=== PATIENT | female | born 1970 | race African-American/Black ===

== ENCOUNTER 2017-11-18 16:45 | Inpatient (IN) | payer OTHER ==
[2017-11-18 17:59] VITALS: BMI 42.9
--- NOTE | 2017-11-18 20:41 | HP ---
CIWA Score - CIWA Score Nausea/Vomitin-No Nausea/No Vomiting Muscle Tremors: 2 Anxiety: 2 Agitation: 4-Moderately Restless Paroxysmal Sweats: 3 Orientation: 1-Uncertain about Date Tacttile Disturbances: 1-Very Mild Itch/Numbness Auditory Disturbances: 0-None Visual Disturbances: 0-None Headache: 0-None Present CIWA-Ar Total Score: 13 Admission ROS S - HPI Chief Complaint: " I want to get clean and go to rehab" Allergies/Adverse Reactions: Allergies Allergy/AdvReac Type Severity Reaction Status Date / Time No Known Allergies Allergy Verified 11/18/17 20:21 History of Present Illness: 47 yo female with hx of crack/cocaine , alcohol, marijuana, and nicotine dependence is here seeking detox. Lst detox 1 year ago at [facility]. PMHX: HIV (non-compliant with meds), asthma, bipolar, depression. Reports feeling depressed lately since remembering the passing of her sister during the month of October 2 years ago. Denies suicidal / homicidal ideation or past hx of suicide attempts. Longest period of sobriety 90 days. Reference #: [id number] Others' Prescriptions Patient Name: Birdie Quiñones Date: 1970 Address: [address] [place] [address] Sex: Female Rx Written Rx Dispensed Drug Quantity Days Supply Prescriber Name 11/16/2017 11/16/2017 clonazepam 1 mg tablet 60 30 Parish Gatica (WORKCELL OPERATOR) 10/08/2017 10/08/2017 clonazepam 1 mg tablet 60 30 Parish Gatica (WORKCELL OPERATOR) 09/08/2017 09/14/2017 clonazepam 1 mg tablet 60 30 Parish Gatica (WORKCELL OPERATOR) 08/07/2017 08/10/2017 clonazepam 1 mg tablet 60 30 Parish Gatica (WORKCELL OPERATOR) 07/13/2017 07/13/2017 clonazepam 1 mg tablet 60 30 Parish Gatica (WORKCELL OPERATOR) 06/06/2017 06/08/2017 tramadol hcl 50 mg tablet 20 4 Candy Villalta 06/08/2017 06/08/2017 clonazepam 1 mg tablet 60 30 Parish Gatica (WORKCELL OPERATOR) 05/05/2017 05/05/2017 clonazepam 1 mg tablet 60 30 Parish Gatica (WORKCELL OPERATOR) 04/06/2017 04/06/2017 clonazepam 1 mg tablet 60 30 Depaola, Parish (WORKCELL OPERATOR) 03/06/2017 03/06/2017 clonazepam 1 mg tablet 60 30 Parish Gatica (WORKCELL OPERATOR) 02/05/2017 02/05/2017 clonazepam 1 mg tablet 60 30 aPrish Gatica (WORKCELL OPERATOR) 01/06/2017 01/06/2017 clonazepam 1 mg tablet 60 30 Parish Gatica (WORKCELL OPERATOR) 12/10/2016 12/10/2016 clonazepam 1 mg tablet 30 30 Parish Gatica (WORKCELL OPERATOR) Exam Limitations: No Limitations - Ebola screening Have you traveled outside of the country in the last 21 days: No Have you had contact with anyone from an Ebola affected area: No Have you been sick,other than usual withdrawal symptoms: No Do you have a fever: No - Review of Systems Constitutional: Chills, Diaphoresis EENT: reports: Nose Congestion, Dental Problems (mising teeth) Respiratory: reports: Cough (x 2 days), Wheezing Cardiac: reports: No Symptoms Reported GI: reports: Abdominal cramping : reports: No Symptoms Reported Musculoskeletal: reports: Back Pain, Joint Pain (both knees, OA) Integumentary: reports: No Symptoms Reported Neuro: reports: No Symptoms reported Endocrine: reports: Increased Thirst, Unexplained Weight Gain Hematology: reports: No Symptoms Reported Psychiatric: reports: Orientated x3, Depressed Other Systems: Reviewed and Negative Patient History - Patient Medical History Hx Anemia: No Hx Asthma: Yes Hx Chronic Obstructive Pulmonary Disease (COPD): No Hx Cancer: No Hx Cardiac Disorders: No Hx Congestive Heart Failure: No Hx Hypertension: No Hx Hypercholesterolemia: No Hx Pacemaker: No HX Cerebrovascular Accident: No Hx Seizures: No Hx Dementia: No Hx Diabetes: No Hx Gastrointestinal Disorders: No Hx Liver Disease: Yes (Hep B ) Hx Genitourinary Disorders: No Hx Sexually Transmitted Disorders: No Hx Renal Disease (ESRD): No Hx Thyroid Disease: No Hx Human Immunodeficiency Virus (HIV): Yes (in 1995, prezcobix, TRUVADA) Hx Hepatitis C: No Hx Depression: Yes Hx Suicide Attempt: No Hx Bipolar Disorder: Yes (schizoaffective disorder) Hx Schizophrenia: Yes (in tx) - Patient Surgical History Past Surgical History: Yes Hx Neurologic Surgery: No Hx Cataract Extraction: No Hx Cardiac Surgery: No Hx Lung Surgery: No Hx Breast Surgery: No Hx Breast Biopsy: No Hx Abdominal Surgery: Yes (TEMPORARY COLOSTOMY PERFORATED COLON AT AGE 20 YRS) Hx Appendectomy: No Hx Cholecystectomy: No Hx Genitourinary Surgery: No Hx Section: No Hx Orthopedic Surgery: No Anesthesia Reaction: No - PPD History Previous Implant?: Yes Documented Results: Negative w/proof Date: 09/15/12 Results: 0 mm PPD to be Administered?: Yes - Reproductive History Patient is a Female of Child Bearing Age (11 -55 yrs old): Yes (Postmenopausal ) Last Menstrual Period: 07/30/13 (no menses) - Smoking Cessation Smoking history: Current every day smoker Have you smoked in the past 12 months: Yes Aproximately how many cigarettes per day: 5 Hx Chewing Tobacco Use: No Initiated information on smoking cessation: Yes 'Breaking Loose' booklet given: 11/18/17 - Substance & Tx. History Hx Alcohol Use: Yes Hx Substance Use: Yes Substance Use Type: Alcohol, Cocaine, Marijuana - Substances Abused Crack Route: Smoking Frequency: 3-6 times per week Amount used: $100 Age of first use: 20 Date of Last Use: 11/17/17 Alcohol Route: Oral Frequency: Daily Amount used: LIQUOR- 3 PINTS, Age of first use: 18 Date of Last Use: 11/18/17 Cocaine Route: Smoking Frequency: Daily Amount used: $50 WORTH Age of first use: 20 Date of Last Use: 11/17/17 Family Disease History - Family Disease History Family Disease History: Diabetes: Brother (alive ), Other: Father (, homocide ), Mother (, drug overdose ), Sister (, leukemia ) Admission Physical Exam S - Vital Signs Vital Signs: Vital Signs - 24 hr 11/18/17 17:57 Temperature 97.6 F Pulse Rate 100 H Respiratory 18 Rate Blood Pressure 148/100 - Physical General Appearance: Yes: Disheveled, Obese, Sweating, Anxious HEENTM: Yes: EOMI, Hearing grossly Normal, Normal ENT Inspection, Normocephalic , Normal Voice, Pharynx Normal, Tm's normal, Rhinorrhea Respiratory: Yes: Chest Non-Tender, Lungs Clear, No Respiratory Distress, No Accessory Muscle Use, Wheezing Neck: Yes: Within Normal Limits Breast: Yes: Breast Exam Deferred Cardiology: Yes: Regular Rhythm, Regular Rate Abdominal: Yes: Normal Bowel Sounds, Non Tender, Soft, Protuberent Genitourinary: Yes: Within Normal Limits Back: Yes: Normal Inspection Musculoskeletal: Yes: full range of Motion, Gait Steady, Pelvis Stable, Back pain Extremities: Yes: Normal Capillary Refill, Normal Inspection, Normal Range of Motion, Non-Tender Neurological: Yes: station examiner II-XII NML intact, Fully Oriented, Alert, Motor Strength 5/5, Normal Response, Depressed Affect Integumentary: Yes: Normal Color, Warm, Moist, Rash (face) Lymphatic: Yes: Within Normal Limits - Diagnostic (1) Alcohol dependence with withdrawal Current Visit: Yes Status: Acute (2) Obese Current Visit: Yes Status: Chronic Qualifiers: Obesity classification: adult class 3 (BMI >= 40) Body mass index: BMI 40.0 -44.9 (3) Asthma Current Visit: Yes Status: Chronic (4) Cocaine dependence Current Visit: Yes Status: Active (5) Facial rash Current Visit: Yes Status: Acute (6) HIV (human immunodeficiency virus infection) Current Visit: Yes Status: Chronic Cleared for Admission [facility] - Detox or Rehab [facility] Level of Care: Medically Managed Detox Regimen/Protocol: Librium [facility] Breath Alcohol Content Breath Alcohol Content: 0 Urine Pregancy Test - Result Urine Test Results: Negative- NO Line Present Urine Drug Screen - Results Drug Screen Negative: Yes Urine Drug Screen Results: THC-Marijuana, ARLENE-Cocaine
[2017-11-18] MEDS ORDERED: NICOTINE POLACRILEX 2 MG GUM BC PRN (20:49)
[2017-11-18] MEDS ORDERED: hydrOXYzine PAMOATE 50 MG CAPSULE (FP) PO PRN (20:49)
[2017-11-18] MEDS ORDERED: MAG HYDROX/AL HYDROX/SIMETH 30 ML UNIT-DOSE CUP PO PRN (20:49)
[2017-11-18] MEDS ORDERED: guaiFENesin/D-METHORPHAN HB 10 ML UNIT-DOSE CUPS PO PRN (20:49)
[2017-11-18] MEDS ORDERED: MAGNESIUM CITRATE 300 ML BOTTLE PO PRN (20:49)
[2017-11-18] MEDS ORDERED: MENTHOL/PHENOL 1 EACH UD MM PRN (20:49)
[2017-11-18] MEDS ORDERED: LOPERAMIDE HCL 2 MG CAPSULE PO PRN (20:49)
[2017-11-18] MEDS ORDERED: ACETAMINOPHEN 325 MG TABLET (FP) PO PRN (20:49)
[2017-11-18] MEDS ORDERED: IBUPROFEN 400 MG TABLET (FP) PO PRN (20:49)
[2017-11-18] MEDS ORDERED: MAGNESIUM HYDROX 2400MG/30ML ORAL SUSPENSION 30 ML CUP PO PRN (20:49)
[2017-11-18] MEDS ORDERED: P-EPHED 60MG/TRIPROLIDI 2.5MG TABLET PO PRN (20:49)
[2017-11-18] MEDS ORDERED: chlordiazePOXIDE HCL 25 MG CAPSULE PO PRN (20:49)
[2017-11-18] MEDS ORDERED: ALBUTEROL SO4 18 GM HFA INHALER IH PRN (21:00)
[2017-11-18] MEDS ORDERED: chlordiazePOXIDE HCL 25 MG CAPSULE PO ONE (21:00)
[2017-11-18] MEDS: THIAMINE HCL 100 MG TABLET (FP) PO SCH (21:29)
[2017-11-18] MEDS ORDERED: MELATONIN 5 MG TABLETS PO PRN (22:00)
[2017-11-18] MEDS: chlordiazePOXIDE HCL 25 MG CAPSULE PO SCH (23:27)
[2017-11-18 23:34] LABS: URINE APPEARANCE TURBID; URINE BILIRUBIN NEGATIVE (<2.0 mg/dL); URINE COLOR YELLOW; URINE GLUCOSE (UA) NEGATIVE (NEGATIVE); URINE KETONE NEGATIVE (NEGATIVE); URINE LEUK ESTERASE NEGATIVE (NEGATIVE); URINE NITRITE NEGATIVE (NEGATIVE)
[2017-11-18 23:40] LABS: URINE PROTEIN 1+ (NEGATIVE)
[2017-11-18 23:53] LABS: EPI CELLS RARE /HPF (FEW); URINE BACTERIA RARE /hpf (NONE SEEN); URINE MUCUS RARE
[2017-11-19] MEDS: chlordiazePOXIDE HCL 25 MG CAPSULE PO SCH ×4 (06:41→22:22)
--- NOTE | 2017-11-19 09:42 | CONSULT ---
[facility] Psychiatric Consult - Data Date of interview: 11/19/17 Admission source: [facility] Identifying data: This is 47 years old male, maried, living alone, on SSI, with psychiaric hsopitalization history, with history if Cocaine, Alcohol, Cannabis, .Nicotine dependence, rpeorts withdrawal symptoms and seeking for detox. l. PMHX: HIV (non-compliant with meds), asthma, bipolar, depression. Reports feeling depressed lately since remembering the passing of her sister during the month of October 2 years ago. Denies suicidal / homicidal ideation or past hx of suicide attempts. Longest period of sobriety 90 days. Substance Abuse History: - Smoking Cessation. Smoking history: Current every day smoker. Have you smoked in the past 12 months: Yes. Aproximately how many cigarettes per day: 5. Hx Chewing Tobacco Use: No. Initiated information on smoking cessation: Yes. 'Breaking Loose' booklet given: 11/18/17. - Substance & Tx. History. Hx Alcohol Use: Yes. Hx Substance Use: Yes. Substance Use Type : Alcohol, Cocaine, Marijuana. - Substances Abused. Crack. Route: Smoking. Frequency: 3-6 times per week. Amount used: $100. Age of first use: 20. Date of Last Use: 11/17/17. Alcohol. Route: Oral. Frequency: Daily. Amount used: LIQUOR- 3 PINTS,. Age of first use: 18. Date of Last Use: . Cocaine. Route: Smoking. Frequency: Daily. Amount used: $50 WORTH. Age of first use: 20. Date of Last Use: 11/17/17 Medical History: HIV (non-compliant with meds), asthma, HTN, BPH, Weight gain. Reports feeling depressed lately since remembering the passing of her sister during the month of October 2 years ago. Denies suicidal / homicidal ideation or past hx of suicide attempts. Psychiatric History: Patient reports history of Schizophrenia, reports taking prior to admission: Risperdal 1mg po qhs, reports most recent psychiatric admission on about qo years ago. Physical/Sexual Abuse/Trauma History: Denies Additional Comment: Risperdal 1mg po qhs Mental Status Exam - Mental Status Exam Alert and Oriented to: Person Cognitive Function: Fair Patient Appearance: Unkempt Mood: Anxious Patient Behavior: Appropriate Speech Pattern: Delayed Voice Loudness: Normal Thought Process: Goal Oriented Thought Disorder: Being Controlled Hallucinations: Denies Suicidal Ideation: Denies Homicidal Ideation: Denies Insight/Judgement: Fair Sleep: Difficulty falling asleep Appetite: Weight gain Muscle strength/Tone: Mild Hypotonicity Gait/Station: Normal Additional Comments: Risperdal 1mg po qhs Psychiatric Findings - Problem List ([place] 1, 2,3) (1) Cocaine dependence Current Visit: Yes Status: Active (2) Alcohol dependence with withdrawal Current Visit: Yes Status: Acute (3) Acquired immune deficiency syndrome (AIDS) Current Visit: Yes Status: Chronic (4) Asthma Current Visit: Yes Status: Chronic (5) HIV (human immunodeficiency virus infection) Current Visit: Yes Status: Chronic (6) Obese Current Visit: Yes Status: Chronic Qualifiers: Obesity classification: adult class 3 (BMI >= 40) Body mass index: BMI 40.0 -44.9 (7) Alcohol dependence Current Visit: No Status: Active (8) Cannabis dependence Current Visit: No Status: Active (9) Paranoid schizophrenia Current Visit: No Status: Active - Initial Treatment Plan Initial Treatment Plan: Risperdal 1mg po qhs
[2017-11-19 09:52] LABS: HEMATOCRIT 37.5 % (32.4-45.2); HEMOGLOBIN 12.3 GM/dL (10.7-15.3); MCH 29.9 pg (25.7-33.7); MCHC 32.8 g/dl (32.0-36.0); MEAN CELL VOLUME 91.3 fl (80-96); PLATELET COUNT 162 K/MM3 (134-434); RDW 14.1 % (11.6-15.6); WHITE BLOOD COUNT 6.1 K/mm3 (4.0-10.0)
[2017-11-19] MEDS ORDERED: COLLOIDAL OATMEAL 1 BAR EACH TP PRN (10:28)
[2017-11-19 10:43] LABS: ALBUMIN 3.2 g/dl (3.4-5.0); ANION GAP 8 (8-16); BLOOD UREA NITROGEN 13 mg/dL (7-18); CALCIUM 8.5 mg/dL (8.5-10.1); CHLORIDE 103 mmol/L (98-107); CO2 30 mmol/L (21-32); CREATININE 0.8 mg/dL (0.55-1.02); GLUCOSE,RANDOM 88 mg/dL (74-106); POTASSIUM 3.7 mmol/L (3.5-5.1); SGOT/AST 27 U/L (15-37); SGPT/ALT 22 U/L (12-78); SODIUM 141 mmol/L (136-145)
[2017-11-19] MEDS: PRENATAL VITAMINS W/ FOLIC ACID TABLET (FP) PO SCH (10:47)
[2017-11-19] MEDS: NICOTINE 14 MG/24 HOURS TOPICAL PATCH TD SCH (10:48)
[2017-11-19 11:00] LABS: ALK PHOS 73 U/L (45-117); BILIRUBIN,TOTAL 0.5 mg/dL (0.2-1.0); TOT PROT 7.8 g/dl (6.4-8.2)
--- NOTE | 2017-11-19 11:08 | PN ---
S CIWA - CIWA Score Nausea/Vomitin-No Nausea/No Vomiting Muscle Tremors: None Anxiety: 0-No Anxiety, at Ease Agitation: 0-Normal Activity Paroxysmal Sweats: No Perspiration Orientation: 0-Oriented Tacttile Disturbances: 2-Mild Itch/Numbness/Burn Auditory Disturbances: 0-None Visual Disturbances: 0-None Headache: 0-None Present CIWA-Ar Total Score: 2 BHS Progress Note (SOAP) Subjective: PATIENT ADMITTED ON 11/18/17 FOR ETOH WITHDRAWAL SYMPTOMS. STATES "I FEEL OK. JUST A LITTLE ITCHING OF SKIN". Objective: 11/19/17 11:05 GENERAL: ALERT AND ORIENTED X 3. IN NAD. SKIN: WARM AND DRY. NO OPEN AREAS GI: SOFT, BS+, NT EXT: NO EDEMA, FULL ROM Assessment: 11/19/17 11:07 ETOH WITHDRAWAL SYMPTOMS WITHDRAWAL SYMPTOMS DRY SKIN/PRURITIS Plan: CONTINUE DETOX ORAL FLUIDS ENCOURAGED AVEENO SOAP ORDERED CONTINUE TO MONITOR CLINICALLY
[2017-11-19] MEDS: HYDROCORTISONE 1% TOPICAL LOTION 118 ML BOTTLE TP PRN (11:15)
--- NOTE | 2017-11-19 11:59 | EKG ---
Test Reason : Blood Pressure : / mmHG Vent. Rate : 084 BPM Atrial Rate : 084 BPM P-R Int : 154 ms QRS Dur : 074 ms QT Int : 352 ms P-R-T Axes : 038 071 050 degrees QTc Int : 415 ms NORMAL SINUS RHYTHM WITH SINUS ARRHYTHMIA NORMAL ECG NO PREVIOUS ECGS AVAILABLE Confirmed by MARIO ESPINAL MD ([id number]) on 11/19/2017 11:59:15 AM Referred By: Confirmed By:MARIO ESPINAL MD
[2017-11-19] MEDS: THIAMINE HCL 100 MG TABLET (FP) PO SCH (22:22)
[2017-11-19] MEDS: risperiDONE 1 MG TABLET (FP) PO SCH (22:22)
[2017-11-20] MEDS: chlordiazePOXIDE HCL 25 MG CAPSULE PO SCH ×3 (06:31→18:41)
[2017-11-20] MEDS: PRENATAL VITAMINS W/ FOLIC ACID TABLET (FP) PO SCH (10:18)
[2017-11-20] MEDS: NICOTINE 14 MG/24 HOURS TOPICAL PATCH TD SCH (10:19)
[2017-11-20] MEDS: HYDROCORTISONE 1% TOPICAL LOTION 118 ML BOTTLE TP PRN (10:21)
--- NOTE | 2017-11-20 11:25 | PN ---
[facility] CIWA - CIWA Score Nausea/Vomitin-No Nausea/No Vomiting Muscle Tremors: 4-Moderate,w/Arms Extend Anxiety: 4-Mod. Anxious/Guarded Agitation: 4-Moderately Restless Paroxysmal Sweats: 1-Minimal Palms Moist Orientation: 0-Oriented Tacttile Disturbances: 0-None Auditory Disturbances: 0-None Visual Disturbances: 0-None Headache: 0-None Present CIWA-Ar Total Score: 13 S Progress Note (SOAP) Subjective: SLIGHT ANXIETY,SWEATS, REPORTS DETOX PROCEEDING WELL. INTERESTED TO GO TO REHAB. Objective: 11/20/17 11:31 Vital Signs 11/20/17 11/20/17 06:00 10:00 Temperature 98.1 F 98.2 F Pulse Rate 79 112 H Respiratory 18 18 Rate Blood Pressure 128/76 125/84 Laboratory Tests 11/18/17 11/19/17 11/19/17 23:15 07:00 07:00 WBC 6.1 D RBC 4.10 Hgb 12.3 Hct 37.5 MCV 91.3 MCH 29.9 MCHC 32.8 RDW 14.1 Plt Count 162 MPV 9.0 Sodium 141 Potassium 3.7 Chloride 103 Carbon Dioxide 30 Anion Gap 8 BUN 13 Creatinine 0.8 Creat Clearance w eGFR > 60 Random Glucose 88 Calcium 8.5 Total Bilirubin 0.5 D AST 27 ALT 22 Alkaline Phosphatase 73 Total Protein 7.8 Albumin 3.2 L Urine Color Yellow Urine Appearance Turbid Urine pH 5.0 Ur Specific [place] 1.032 Urine Protein 1+ H Urine Glucose (UA) Negative Urine Ketones Negative Urine Blood 1+ H Urine Nitrite Negative Urine Bilirubin Negative Urine Urobilinogen 2.0 H Ur Leukocyte Esterase Negative Urine WBC (Auto) 42 Urine RBC (Auto) 25 Ur Epithelial Cells Rare Urine Bacteria Rare Urine Mucus Rare RPR Titer 11/19/17 07:00 WBC RBC Hgb Hct MCV MCH MCHC RDW Plt Count MPV Sodium Potassium Chloride Carbon Dioxide Anion Gap BUN Creatinine Creat Clearance w eGFR Random Glucose Calcium Total Bilirubin AST ALT Alkaline Phosphatase Total Protein Albumin Urine Color Urine Appearance Urine pH Ur Specific [place] Urine Protein Urine Glucose (UA) Urine Ketones Urine Blood Urine Nitrite Urine Bilirubin Urine Urobilinogen Ur Leukocyte Esterase Urine WBC (Auto) Urine RBC (Auto) Ur Epithelial Cells Urine Bacteria Urine Mucus RPR Titer Nonreactive LABS NOTED Assessment: 06/22/18 11:31 WITHDRAWAL SX Plan: CONTINUE DETOX INCREASE PO FLUIDS REPEAT UA
[2017-11-20] MEDS: BACITRACIN 0.9 GM PACKET TP SCH (15:43)
[2017-11-20 16:56] LABS: URINE APPEARANCE SLCLOUDY; URINE BILIRUBIN NEGATIVE (<2.0 mg/dL); URINE COLOR YELLOW; URINE GLUCOSE (UA) NEGATIVE (NEGATIVE); URINE KETONE NEGATIVE (NEGATIVE); URINE LEUK ESTERASE NEGATIVE (NEGATIVE); URINE NITRITE NEGATIVE (NEGATIVE); URINE PROTEIN NEGATIVE (NEGATIVE); URINE UROBILINOGEN NEGATIVE mg/dL (0.2-1.0)
[2017-11-20] MEDS: chlordiazePOXIDE 5 MG CAPSULE PO SCH (22:29)
[2017-11-20] MEDS: THIAMINE HCL 100 MG TABLET (FP) PO SCH (22:29)
[2017-11-20] MEDS: risperiDONE 1 MG TABLET (FP) PO SCH (22:32)
[2017-11-21] MEDS: chlordiazePOXIDE 5 MG CAPSULE PO SCH ×3 (06:11→18:24)
[2017-11-21] MEDS: BACITRACIN 0.9 GM PACKET TP SCH (10:18)
[2017-11-21] MEDS: PRENATAL VITAMINS W/ FOLIC ACID TABLET (FP) PO SCH (10:18)
[2017-11-21] MEDS: HYDROCORTISONE 1% TOPICAL LOTION 118 ML BOTTLE TP PRN (10:19)
[2017-11-21] MEDS: NICOTINE 14 MG/24 HOURS TOPICAL PATCH TD SCH (10:19)
--- NOTE | 2017-11-21 12:58 | PN ---
S Progress Note (SOAP) Subjective: Tremors, sweats and irritability Objective: 11/21/17 12:56 Vital Signs 11/21/17 11/21/17 06:51 10:45 Temperature 97.7 F 97.5 F L Pulse Rate 89 82 Respiratory 20 18 Rate Blood Pressure 133/74 132/98 Laboratory Last Values WBC 6.1 K/mm3 (4.0-10.0) D 11/19/17 07:00 RBC 4.10 M/mm3 (3.60-5.2) 11/19/17 07:00 Hgb 12.3 GM/dL (10.7-15.3) 11/19/17 07:00 Hct 37.5 % (32.4-45.2) 11/19/17 07:00 MCV 91.3 fl (80-96) 11/19/17 07:00 MCH 29.9 pg (25.7-33.7) 11/19/17 07:00 MCHC 32.8 g/dl (32.0-36.0) 11/19/17 07:00 RDW 14.1 % (11.6-15.6) 11/19/17 07:00 Plt Count 162 K/MM3 (134-434) 11/19/17 07:00 MPV 9.0 fl (7.5-11.1) 11/19/17 07:00 Sodium 141 mmol/L (136-145) 11/19/17 07:00 Potassium 3.7 mmol/L (3.5-5.1) 11/19/17 07:00 Chloride 103 mmol/L (98-107) 11/19/17 07:00 Carbon Dioxide 30 mmol/L (21-32) 11/19/17 07:00 Anion Gap 8 (8-16) 11/19/17 07:00 BUN 13 mg/dL (7-18) 11/19/17 07:00 Creatinine 0.8 mg/dL (0.55-1.02) 11/19/17 07:00 Creat Clearance w eGFR > 60 (>60) 11/19/17 07:00 Random Glucose 88 mg/dL (74-106) 11/19/17 07:00 Calcium 8.5 mg/dL (8.5-10.1) 11/19/17 07:00 Total Bilirubin 0.5 mg/dL (0.2-1.0) D 11/19/17 07:00 AST 27 U/L (15-37) 11/19/17 07:00 ALT 22 U/L (12-78) 11/19/17 07:00 Alkaline Phosphatase 73 U/L (45-117) 11/19/17 07:00 Total Protein 7.8 g/dl (6.4-8.2) 11/19/17 07:00 Albumin 3.2 g/dl (3.4-5.0) L 11/19/17 07:00 Urine Color Yellow 11/20/17 13:19 Urine Appearance Slcloudy 11/20/17 13:19 Urine pH 5.0 (5.0-8.0) 11/20/17 13:19 Ur Specific [place] 1.014 (1.001-1.035) 11/20/17 13:19 Urine Protein Negative (NEGATIVE) 11/20/17 13:19 Urine Glucose (UA) Negative (NEGATIVE) 11/20/17 13:19 Urine Ketones Negative (NEGATIVE) 11/20/17 13:19 Urine Blood Negative (NEGATIVE) 11/20/17 13:19 Urine Nitrite Negative (NEGATIVE) 11/20/17 13:19 Urine Bilirubin Negative (<2.0 mg/dL) 11/20/17 13:19 Urine Urobilinogen Negative mg/dL (0.2-1.0) 11/20/17 13:19 Ur Leukocyte Esterase Negative (NEGATIVE) 11/20/17 13:19 Urine WBC (Auto) 42 /hpf (3-5) 11/18/17 23:15 Urine RBC (Auto) 25 /hpf (0-3) 11/18/17 23:15 Ur Epithelial Cells Rare /HPF (FEW) 11/18/17 23:15 Urine Bacteria Rare /hpf (NONE SEEN) 11/18/17 23:15 Urine Mucus Rare 11/18/17 23:15 RPR Titer Nonreactive (NONREACTIVE) 11/19/17 07:00 Labs noted Assessment: Withdrawal sx 11/21/17 12:57 Plan: Continue detox
[2017-11-21] MEDS: THIAMINE HCL 100 MG TABLET (FP) PO SCH (22:43)
[2017-11-21] MEDS: risperiDONE 1 MG TABLET (FP) PO SCH (22:44)
[2017-11-21] MEDS: chlordiazePOXIDE HCL 10 MG CAPSULE PO SCH (22:44)
[2017-11-22] MEDS: chlordiazePOXIDE HCL 10 MG CAPSULE PO SCH ×2 (06:34→10:25)
[2017-11-22 07:17] VITALS: BP 125/88
--- NOTE | 2017-11-22 08:47 | DS ---
[facility] Detox Discharge Summary Admission Date: 11/18/17 Discharge Date: 11/22/17 - History Present History: Alcohol Dependence Additional Comments: 47 years old female admitted 11/18/17 for alcohol withdrawal sx completed alcohol detox regimen tolerated well denies alcohol withdrawal sx today feeling better aftercare [facility] teaching on hiv art adherence and follow up with infectious disease specialist patient acknowledged the risks of none adherence art and its consequences - Physical Exam Results Vital Signs: Vital Signs Temperature 97.7 F 11/22/17 07:16 Pulse Rate 90 11/22/17 07:16 Respiratory Rate 11/22/17 07:16 Blood Pressure 125/88 11/22/17 07:16 O2 Sat by Pulse Oximetry (%) Pertinent Admission Physical Exam Findings: alcohol withdrawal sx Vital Signs Temperature 97.7 F 11/22/17 07:16 Pulse Rate 90 11/22/17 07:16 Respiratory Rate 11/22/17 07:16 Blood Pressure 125/88 11/22/17 07:16 O2 Sat by Pulse Oximetry (%) Laboratory Last Values WBC 6.1 K/mm3 (4.0-10.0) D 11/19/17 07:00 RBC 4.10 M/mm3 (3.60-5.2) 11/19/17 07:00 Hgb 12.3 GM/dL (10.7-15.3) 11/19/17 07:00 Hct 37.5 % (32.4-45.2) 11/19/17 07:00 MCV 91.3 fl (80-96) 11/19/17 07:00 MCH 29.9 pg (25.7-33.7) 11/19/17 07:00 MCHC 32.8 g/dl (32.0-36.0) 11/19/17 07:00 RDW 14.1 % (11.6-15.6) 11/19/17 07:00 Plt Count 162 K/MM3 (134-434) 11/19/17 07:00 MPV 9.0 fl (7.5-11.1) 11/19/17 07:00 Sodium 141 mmol/L (136-145) 11/19/17 07:00 Potassium 3.7 mmol/L (3.5-5.1) 11/19/17 07:00 Chloride 103 mmol/L (98-107) 11/19/17 07:00 Carbon Dioxide 30 mmol/L (21-32) 11/19/17 07:00 Anion Gap 8 (8-16) 11/19/17 07:00 BUN 13 mg/dL (7-18) 11/19/17 07:00 Creatinine 0.8 mg/dL (0.55-1.02) 11/19/17 07:00 Creat Clearance w eGFR > 60 (>60) 11/19/17 07:00 Random Glucose 88 mg/dL (74-106) 11/19/17 07:00 Calcium 8.5 mg/dL (8.5-10.1) 11/19/17 07:00 Total Bilirubin 0.5 mg/dL (0.2-1.0) D 11/19/17 07:00 AST 27 U/L (15-37) 11/19/17 07:00 ALT 22 U/L (12-78) 11/19/17 07:00 Alkaline Phosphatase 73 U/L (45-117) 11/19/17 07:00 Total Protein 7.8 g/dl (6.4-8.2) 11/19/17 07:00 Albumin 3.2 g/dl (3.4-5.0) L 11/19/17 07:00 Urine Color Yellow 11/20/17 13:19 Urine Appearance Slcloudy 11/20/17 13:19 Urine pH 5.0 (5.0-8.0) 11/20/17 13:19 Ur Specific [place] 1.014 (1.001-1.035) 11/20/17 13:19 Urine Protein Negative (NEGATIVE) 11/20/17 13:19 Urine Glucose (UA) Negative (NEGATIVE) 11/20/17 13:19 Urine Ketones Negative (NEGATIVE) 11/20/17 13:19 Urine Blood Negative (NEGATIVE) 11/20/17 13:19 Urine Nitrite Negative (NEGATIVE) 11/20/17 13:19 Urine Bilirubin Negative (<2.0 mg/dL) 11/20/17 13:19 Urine Urobilinogen Negative mg/dL (0.2-1.0) 11/20/17 13:19 Ur Leukocyte Esterase Negative (NEGATIVE) 11/20/17 13:19 Urine WBC (Auto) 42 /hpf (3-5) 11/18/17 23:15 Urine RBC (Auto) 25 /hpf (0-3) 11/18/17 23:15 Ur Epithelial Cells Rare /HPF (FEW) 11/18/17 23:15 Urine Bacteria Rare /hpf (NONE SEEN) 11/18/17 23:15 Urine Mucus Rare 11/18/17 23:15 RPR Titer Nonreactive (NONREACTIVE) 11/19/17 07:00 lab noted - Treatment Hospital Course: Detox Protocol Followed, Detoxed Safely, Responded well, Discharged Condition Good, Rehab Referral Accepted Patient has Accepted a Rehab Referral to: [facility] - Medication Discharge Medications: Ambulatory Orders Emtricitabine/Tenofovir [Truvada -] 1 tab PO DAILY 11/18/17 Risperidone [Risperdal -] 1 mg PO HS 11/18/17 Risperidone [Risperdal -] 1 mg PO HS #30 tablet 11/19/17 Albuterol Sulfate Inhaler - [Ventolin HFA Inhaler -] 2 inh PO Q6H #1 inhaler - Diagnosis (1) Alcohol dependence with withdrawal Current Visit: Yes Status: Acute Qualifiers: Complication of substance-induced condition: uncomplicated Qualified Code(s ): F10.230 - Alcohol dependence with withdrawal, uncomplicated (2) Asthma Current Visit: Yes Status: Chronic (3) HIV (human immunodeficiency virus infection) Current Visit: Yes Status: Chronic (4) Paranoid schizophrenia Current Visit: Yes Status: Suspected - AMA Did Patient Leave Against Medical Advice: No
[2017-11-22] MEDS: NICOTINE 14 MG/24 HOURS TOPICAL PATCH TD SCH (10:24)
[2017-11-22] MEDS: PRENATAL VITAMINS W/ FOLIC ACID TABLET (FP) PO SCH (10:24)
[2017-11-22] MEDS: BACITRACIN 0.9 GM PACKET TP SCH (10:24)
[2017-11-22] MEDS: HYDROCORTISONE 1% TOPICAL LOTION 118 ML BOTTLE TP PRN (10:25)
[2017-11-22 10:26] VITALS: PULSE 107; TEMP 98.1
== END 2017-11-22 10:40 | disposition other institution (70) | DRG 774 ==
LOC: YASAS 16:45 → Y6N 20:27
PROVIDERS: ADMIT Family Medicine Addiction Medicine; ATTEND Family Medicine Addiction Medicine
PROC: HZ2ZZZZ Detoxification Services for Substance Abuse Treatment (ICD-10-PCS; principal; 2017-11-18)
DX: F10.230 Alcohol dependence with withdrawal, uncomplicated (principal); F14.20 Cocaine dependence, uncomplicated; F12.20 Cannabis dependence, uncomplicated; F17.210 Nicotine dependence, cigarettes, uncomplicated; F20.0 Paranoid schizophrenia; J45.909 Unspecified asthma, uncomplicated; L98.8 Other specified disorders of the skin and subcutaneous tissue; R21 Rash and other nonspecific skin eruption; E66.9 Obesity, unspecified; Z68.41 Body mass index [BMI] 40.0-44.9, adult; Z91.14 Patient's other noncompliance with medication regimen
CPT/HCPCS: 36415; 80053; 81003; 81015; 85027; 86593; 93005; 93010; J2794

== ENCOUNTER 2017-11-22 10:45 | Inpatient (IN) | payer OTHER ==
--- NOTE | 2017-11-22 12:37 | HP ---
[facility] Rehab Assess/Revision - Admission History Admitted to Rehab from: [facility] Date of Admission to Rehab: 11/22/17 - Vital signs Vital Signs: Vital Signs Period Temp Pulse Resp BP Sys/Candelario Pulse Ox Last 24 Hr 98.2 F 96 20 125/86 - Findings Detox History & Physical reviewed: Yes Concur with findings: Yes Comments/Additional Findings: TRANSFERRED FROM DETOX TO REHAB ADMISSION PER PROTOCOL Inpatient Rehab Admission - Rehab Admission Criteria Previous failed treatment: Yes Poor recovery environment: Yes Comorbidities: Yes Lacks judgement: No Patient is meeting Inpatient Rehab admission criteria:: Yes
[2017-11-22] MEDS ORDERED: MAGNESIUM CITRATE 300 ML BOTTLE PO PRN (12:38)
[2017-11-22] MEDS ORDERED: MAG HYDROX/AL HYDROX/SIMETH 30 ML UNIT-DOSE CUP PO PRN (12:38)
[2017-11-22] MEDS ORDERED: MENTHOL/PHENOL 1 EACH UD MM PRN (12:38)
[2017-11-22] MEDS ORDERED: LOPERAMIDE HCL 2 MG CAPSULE PO PRN (12:38)
[2017-11-22] MEDS ORDERED: P-EPHED 60MG/TRIPROLIDI 2.5MG TABLET PO PRN (12:38)
[2017-11-22] MEDS ORDERED: MAGNESIUM HYDROX 2400MG/30ML ORAL SUSPENSION 30 ML CUP PO PRN (12:38)
[2017-11-22] MEDS ORDERED: NICOTINE 14 MG/24 HOURS TOPICAL PATCH TD PRN (12:38)
[2017-11-22] MEDS ORDERED: guaiFENesin/D-METHORPHAN HB 10 ML UNIT-DOSE CUPS PO PRN (12:38)
[2017-11-22] MEDS ORDERED: ACETAMINOPHEN 325 MG TABLET (FP) PO PRN (12:38)
[2017-11-22] MEDS ORDERED: BACITRACIN 0.9 GM PACKET TP ONE (12:44)
--- NOTE | 2017-11-22 15:38 | PN ---
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
[2017-11-22] MEDS: THIAMINE HCL 100 MG TABLET (FP) PO SCH (21:46)
[2017-11-22] MEDS: risperiDONE 1 MG TABLET (FP) PO SCH (21:46)
[2017-11-22] MEDS ORDERED: MELATONIN 5 MG TABLETS PO PRN (22:00)
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
[2017-11-23] MEDS: PRENATAL VITAMINS W/ FOLIC ACID TABLET (FP) PO SCH (10:02)
[2017-11-23] MEDS: THIAMINE HCL 100 MG TABLET (FP) PO SCH (21:18)
[2017-11-23] MEDS: risperiDONE 1 MG TABLET (FP) PO SCH (21:18)
[2017-11-24] MEDS ORDERED: PT OWN MED DRAWER 7, Y5N ONE (08:52)
[2017-11-24] MEDS: EMTRICITABINE 200MG/TENOFOVIR 300MG PO SCH (10:39)
[2017-11-24] MEDS: PRENATAL VITAMINS W/ FOLIC ACID TABLET (FP) PO SCH (10:39)
[2017-11-24] MEDS: ALBUTEROL SO4 8 GM HFA INHALER IH PRN (14:36)
--- NOTE | 2017-11-24 14:57 | PN ---
[facility] Progress Note Note: patient reports she sold her antiviral medication. last rx filled 11/06/17. Patient educated on the importance to take medications as directed. Patient to follow up with PMD.
[2017-11-24] MEDS: NICOTINE POLACRILEX 2 MG GUM BUC PRN (17:49)
[2017-11-24] MEDS: risperiDONE 1 MG TABLET (FP) PO SCH (21:42)
[2017-11-24] MEDS: THIAMINE HCL 100 MG TABLET (FP) PO SCH (21:42)
[2017-11-25] MEDS: ALBUTEROL SO4 8 GM HFA INHALER IH PRN (06:50)
[2017-11-25] MEDS: PRENATAL VITAMINS W/ FOLIC ACID TABLET (FP) PO SCH (10:29)
[2017-11-25] MEDS: EMTRICITABINE 200MG/TENOFOVIR 300MG PO SCH (10:29)
[2017-11-25] MEDS: NICOTINE POLACRILEX 2 MG GUM BUC PRN (10:41)
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
[2017-11-25] MEDS: risperiDONE 1 MG TABLET (FP) PO SCH (21:59)
[2017-11-25] MEDS: THIAMINE HCL 100 MG TABLET (FP) PO SCH (21:59)
[2017-11-26] MEDS: PRENATAL VITAMINS W/ FOLIC ACID TABLET (FP) PO SCH (10:29)
[2017-11-26] MEDS: THIAMINE HCL 100 MG TABLET (FP) PO SCH (21:48)
[2017-11-26] MEDS: risperiDONE 1 MG TABLET (FP) PO SCH (21:48)
[2017-11-27] MEDS: PRENATAL VITAMINS W/ FOLIC ACID TABLET (FP) PO SCH (10:44)
[2017-11-27] MEDS: IBUPROFEN 400 MG TABLET (FP) PO PRN ×2 (10:45→22:06)
[2017-11-27] MEDS ORDERED: COLLOIDAL OATMEAL 1 BAR EACH TP PRN (13:49)
--- NOTE | 2017-11-27 13:52 | PN ---
[facility] Progress Note Note: PATIENT SEEN FOR RASH ON FACE. PATIENT STATES "RASH IS NOW GOING AWAY". PE: SKIN : FACIAL SKIN WARM AND DRY. INTACT. RESOLVING FACIAL RASH. LIKELY RELATED TO DRYING OF SKIN. WILL ORDER AVEENO SOAP AND CONTINUE TO MONITOR CLINICALLY.
[2017-11-27] MEDS: risperiDONE 1 MG TABLET (FP) PO SCH (22:05)
[2017-11-27] MEDS: THIAMINE HCL 100 MG TABLET (FP) PO SCH (22:05)
[2017-11-27] MEDS ORDERED: PT OWN MED DRAWER 7, Y5N ONE (23:29)
[2017-11-28] MEDS: IBUPROFEN 400 MG TABLET (FP) PO PRN ×2 (10:42→21:56)
[2017-11-28] MEDS: PRENATAL VITAMINS W/ FOLIC ACID TABLET (FP) PO SCH (10:43)
[2017-11-28] MEDS: ALBUTEROL SO4 8 GM HFA INHALER IH PRN (11:09)
[2017-11-28] MEDS ORDERED: PT OWN MED DRAWER 7, Y5N ONE (11:09)
[2017-11-28] MEDS: risperiDONE 1 MG TABLET (FP) PO SCH (21:55)
[2017-11-28] MEDS: THIAMINE HCL 100 MG TABLET (FP) PO SCH (21:55)
[2017-11-29] MEDS: IBUPROFEN 400 MG TABLET (FP) PO PRN ×2 (09:41→21:08)
[2017-11-29] MEDS: PRENATAL VITAMINS W/ FOLIC ACID TABLET (FP) PO SCH (09:42)
[2017-11-29] MEDS: risperiDONE 1 MG TABLET (FP) PO SCH (21:07)
[2017-11-29] MEDS: THIAMINE HCL 100 MG TABLET (FP) PO SCH (21:07)
[2017-11-30] MEDS: PRENATAL VITAMINS W/ FOLIC ACID TABLET (FP) PO SCH (10:49)
[2017-11-30] MEDS: IBUPROFEN 400 MG TABLET (FP) PO PRN ×2 (10:49→21:20)
[2017-11-30] MEDS: THIAMINE HCL 100 MG TABLET (FP) PO SCH (21:19)
[2017-11-30] MEDS: risperiDONE 1 MG TABLET (FP) PO SCH (21:19)
[2017-12-01] MEDS ORDERED: cloNIDine HCL 0.1 MG TABLET PO ONE (07:00)
--- NOTE | 2017-12-01 07:05 | PN ---
[facility] Progress Note Note: Patient's blood pressure is B/P 141/104. Patient complained of headache Vital Signs Temperature 97.9 F 12/01/17 07:03 Pulse Rate 82 11/30/17 07:24 Respiratory Rate 74 H 12/01/17 07:03 Blood Pressure 141/104 12/01/17 07:03 O2 Sat by Pulse Oximetry (%) Action: Clonidine 0.1mg tablet oral order
[2017-12-01] MEDS: IBUPROFEN 400 MG TABLET (FP) PO PRN ×2 (10:48→21:51)
[2017-12-01] MEDS: PRENATAL VITAMINS W/ FOLIC ACID TABLET (FP) PO SCH (10:48)
--- NOTE | 2017-12-01 13:36 | PN ---
S Progress Note Note: Vital Signs Temperature 97.9 F 12/01/17 07:38 Pulse Rate 96 H 12/01/17 07:38 Respiratory Rate 18 12/01/17 07:38 Blood Pressure 129/87 12/01/17 07:38 O2 Sat by Pulse Oximetry (%) Patient BP stable continue to monitor
[2017-12-01] MEDS: THIAMINE HCL 100 MG TABLET (FP) PO SCH (21:51)
[2017-12-01] MEDS: risperiDONE 1 MG TABLET (FP) PO SCH (21:51)
[2017-12-02] MEDS: IBUPROFEN 400 MG TABLET (FP) PO PRN (11:10)
[2017-12-02] MEDS: PRENATAL VITAMINS W/ FOLIC ACID TABLET (FP) PO SCH (11:11)
[2017-12-02] MEDS: NICOTINE POLACRILEX 2 MG GUM BUC PRN (11:11)
[2017-12-02] MEDS ORDERED: PT OWN MED DRAWER 7, Y5N ONE (18:39)
[2017-12-02] MEDS: THIAMINE HCL 100 MG TABLET (FP) PO SCH (21:53)
[2017-12-02] MEDS: risperiDONE 1 MG TABLET (FP) PO SCH (21:53)
[2017-12-03] MEDS: PRENATAL VITAMINS W/ FOLIC ACID TABLET (FP) PO SCH (10:33)
[2017-12-03] MEDS: IBUPROFEN 400 MG TABLET (FP) PO PRN (10:34)
[2017-12-03] MEDS ORDERED: PT OWN MED DRAWER 7, Y5N ONE (14:33)
[2017-12-03] MEDS: ALBUTEROL SO4 8 GM HFA INHALER IH PRN (14:35)
[2017-12-03] MEDS: THIAMINE HCL 100 MG TABLET (FP) PO SCH (21:44)
[2017-12-03] MEDS: risperiDONE 1 MG TABLET (FP) PO SCH (21:44)
[2017-12-04] MEDS ORDERED: PT OWN MED DRAWER 7, Y5N ONE (00:17)
[2017-12-04] MEDS: PRENATAL VITAMINS W/ FOLIC ACID TABLET (FP) PO SCH (10:41)
[2017-12-04] MEDS: IBUPROFEN 400 MG TABLET (FP) PO PRN (10:42)
--- NOTE | 2017-12-04 16:35 | PN ---
[facility] Progress Note Note: Patient BP stable. Low Na diet reviewed. Patient for d/c in am and encourage to follow up with PCP. D/C meds ordered. Vital Signs Temperature 98.0 F 12/04/17 06:54 Pulse Rate 97 H 12/04/17 09:05 Respiratory Rate 18 12/04/17 07:01 Blood Pressure 132/88 12/04/17 09:05 O2 Sat by Pulse Oximetry (%)
[2017-12-04] MEDS: ALBUTEROL SO4 8 GM HFA INHALER IH PRN (19:30)
[2017-12-04] MEDS: THIAMINE HCL 100 MG TABLET (FP) PO SCH (21:57)
[2017-12-04] MEDS: risperiDONE 1 MG TABLET (FP) PO SCH (21:57)
[2017-12-05] MEDS: IBUPROFEN 400 MG TABLET (FP) PO PRN (09:08)
--- NOTE | 2017-12-05 09:54 | PN ---
[facility] Progress Note Note: reported unwitnessed fall last night,patient just reported to nurse no head injury complained of dizzy and headache examination alert,oriented x 3 no injury noted treatment initiate fall protocol 1 Vital Signs Temperature 98.6 F 12/05/17 07:33 Pulse Rate 96 H 12/05/17 07:33 Respiratory Rate 18 12/05/17 07:33 Blood Pressure 132/90 12/05/17 07:33 O2 Sat by Pulse Oximetry (%) bp now bp 153/108,p79.r20,t98 to er at [facility] for evaluation initiate fall protocol 1
[2017-12-05] MEDS: PRENATAL VITAMINS W/ FOLIC ACID TABLET (FP) PO SCH (10:50)
[2017-12-05] MEDS: risperiDONE 1 MG TABLET (FP) PO SCH (21:44)
[2017-12-05] MEDS: THIAMINE HCL 100 MG TABLET (FP) PO SCH (21:44)
[2017-12-06 07:27] VITALS: PULSE 94
[2017-12-06] MEDS: PRENATAL VITAMINS W/ FOLIC ACID TABLET (FP) PO SCH (09:22)
[2017-12-06] MEDS: IBUPROFEN 400 MG TABLET (FP) PO PRN (09:23)
[2017-12-06] MEDS: risperiDONE 1 MG TABLET (FP) PO SCH (21:49)
[2017-12-06] MEDS: THIAMINE HCL 100 MG TABLET (FP) PO SCH (21:49)
[2017-12-07 07:34] VITALS: BP 132/91; TEMP 98.2
[2017-12-07] MEDS ORDERED: PT OWN MED DRAWER 7, Y5N ONE ×2 (08:23→09:08)
[2017-12-07] MEDS: PRENATAL VITAMINS W/ FOLIC ACID TABLET (FP) PO SCH (09:58)
--- NOTE | 2017-12-07 10:05 | PN ---
Psychiatric Progress Note Vital Signs: Vital Signs Period Temp Pulse Resp BP Sys/Candelario Pulse Ox Last 24 Hr 98.2 F 94 18-20 132/91 Date of Session: 12/07/17 Chief Complaint:: Discharge visit HPI: Alcohol,Cocaine,Cannabis dependence comorbid with Schizophrenia. ROS: HIV+,AIDS. Current Medications: Active Medications Generic Name Dose Route Start Last Admin Trade Name Freq PRN Reason Stop Dose Admin Acetaminophen 650 mg 11/22/17 12:38 12/03/17 12:35 Tylenol - PO 650 mg Q4H PRN Administration FEVER Al Hydroxide/Mg Hydroxide 30 ml 11/22/17 12:38 Mylanta Oral Suspension - PO Q6H PRN DYSPEPSIA Albuterol Sulfate 2 puff 11/22/17 12:39 12/04/17 19:30 Ventolin Hfa Inhaler - IH 2 puff Q6H PRN Administration ASTHMA Colloidal Oatmeal 1 applic 11/27/17 13:49 11/28/17 10:42 Aveeno Soap - TP 1 bar DAILY PRN Administration HYGEINE Eucalyptus/Menthol/Phenol/Sorbitol 1 each 11/22/17 12:38 Cepastat Lozenge - MM Q4H PRN SORE THROAT Guaifenesin 10 ml 11/22/17 12:38 11/28/17 10:42 Robitussin Dm - PO 10 ml Q6H PRN Administration COUGH Ibuprofen 400 mg 11/22/17 12:38 12/06/17 09:23 Motrin - PO 400 mg Q6H PRN Administration Pain Level 4-6 Loperamide HCl 4 mg 11/22/17 12:38 Imodium - PO Q6H PRN DIARRHEA Magnesium Citrate 300 ml 11/22/17 12:38 Citroma - PO Q48H PRN CONSTIPATION Magnesium Hydroxide 30 ml 11/22/17 12:38 Milk Of Magnesia - PO DAILY PRN CONSTIPATION Melatonin 5 mg 11/22/17 22:00 Melatonin PO HS PRN INSOMNIA Nicotine 14 mg 11/22/17 12:38 Nicoderm Patch - TD DAILY PRN WITHDRAWAL(CONT SUBST) Nicotine Polacrilex 2 mg 11/22/17 12:38 12/02/17 11:11 Nicorette Gum - BUC 2 mg Q2H PRN Administration NICOTINE REPLACEMENT RX Multivit/Folic Acid/Iron 1 tab 11/23/17 10:00 07/09/18 09:58 Vitamins (Sjr) - PO 1 tab DAILY JEREL Administration Pseudoephedrine/Triprolidine 1 combo 11/22/17 12:38 Actifed - PO TID PRN NASAL CONGESTION Risperidone 1 mg 11/22/17 22:00 12/06/17 21:49 Risperdal - PO 1 mg HS JEREL Administration Thiamine HCl 100 mg 11/22/17 22:00 12/06/17 21:49 Vitamin B1 - PO 100 mg HS JEREL Administration Current Side Effect: No Lab tests ordered: No Lab tests reviewed: Yes Provider note:: Patient completed this program today.She has met her treatment goals and will continue to address her issues on outpatient basis.Patient reports finding that Risperidone 1 mg po hs helps to cope with mood stabilization,anxiety,depression.Script provided. Supporive therapy provided focusing on relapse prevention including coping skills,support utilization to maintain recovery. Patient is stable for discharge. Total face to face time:: 30 Mental Status Exam - Mental Status Exam Alert and Oriented to: Time, Place, Person Cognitive Function: Grossly Intact Patient Appearance: Well Groomed Mood: Hopeful, Euthymic Affect: Mood Congruent Patient Behavior: Cooperative Speech Pattern: Clear Voice Loudness: Normal Thought Process: Goal Oriented Thought Disorder: Being Controlled Hallucinations: Denies Suicidal Ideation: Denies Homicidal Ideation: Denies Insight/Judgement: Fair Sleep: Fair Appetite: Good Muscle strength/Tone: Normal Gait/Station: Normal Psychiatric Treatment Plan - Problem List (1) Alcohol dependence Current Visit: Yes (2) Cannabis dependence Current Visit: Yes (3) Cocaine dependence Current Visit: Yes (4) Acquired immune deficiency syndrome (AIDS) Current Visit: Yes (5) Asthma Current Visit: Yes (6) Schizophrenia, paranoid type Current Visit: Yes (7) HIV (human immunodeficiency virus infection) Current Visit: Yes (8) Obese Current Visit: Yes Qualifiers: Obesity classification: adult class 3 (BMI >= 40) Body mass index: BMI 40.0 -44.9
== END 2017-12-07 10:04 | disposition home or self-care (01) | DRG 772 ==
LOC: YASAS 10:45 → Y3E 10:47
PROVIDERS: ADMIT Psychiatry & Neurology Psychiatry; ATTEND Psychiatry & Neurology Psychiatry
PROC: HZ42ZZZ Group Counseling for Substance Abuse Treatment, Cognitive-Behavioral (ICD-10-PCS; principal; 2017-11-22)
DX: F10.20 Alcohol dependence, uncomplicated (principal); F14.20 Cocaine dependence, uncomplicated; F12.20 Cannabis dependence, uncomplicated; F20.0 Paranoid schizophrenia; B20 Human immunodeficiency virus [HIV] disease; J45.909 Unspecified asthma, uncomplicated; R12 Heartburn; E66.9 Obesity, unspecified; Z68.41 Body mass index [BMI] 40.0-44.9, adult; Z91.14 Patient's other noncompliance with medication regimen; W19.XXXA Unspecified fall, initial encounter; Y93.9 Activity, unspecified; Y92.239 Unspecified place in hospital as the place of occurrence of the external cause
CPT/HCPCS: 70450-TC; J2794